=== PATIENT | female | born 1955 | race Caucasian/White ===

== ENCOUNTER → 2018-08-27 | Outpatient (CLI) | payer MEDICARE, OTHER | LOC: MC.RAD 11:20 | DX: Z12.31 Encounter for screening mammogram for malignant neoplasm of breast (principal) ==

== ENCOUNTER → 2019-09-10 | Outpatient (CLI) | payer MEDICARE, OTHER | LOC: MC.RAD 10:44 | DX: Z12.31 Encounter for screening mammogram for malignant neoplasm of breast (principal) ==

== ENCOUNTER → 2020-10-15 | Outpatient (CLI) | payer MEDICARE ==
[~2020-10-15] MED LIST: LIPITOR 10MG10 MG PO; MOBIC15 MG PO; ONE-A-DAY ESSE1 EACH PO; PEPCID 20MG TAB20 MG PO; TAZTIA240 PO; ZYRTEC5 MG PO
== END ==
LOC: MC.RAD
DX: Z12.31 Encounter for screening mammogram for malignant neoplasm of breast (principal)

== ENCOUNTER 2021-03-03 07:49 | Day surgery (SDC) | payer MEDICARE ==
[~2021-03-03] VITALS: Ht 160 cm; Wt 82.0 kg
[2021-03-03] MEDS ORDERED: MOBIC15 MG PO (08:14)
[2021-03-03] MEDS ORDERED: PEPCID 20MG TAB20 MG PO (08:15)
[2021-03-03] MEDS ORDERED: ONE-A-DAY ESSE1 EACH PO (08:15)
[2021-03-03] MEDS ORDERED: LIPITOR 10MG10 MG PO (08:15)
[2021-03-03] MEDS ORDERED: TAZTIA240 PO (08:15)
[2021-03-03] MEDS ORDERED: ZYRTEC5 MG PO (08:16)
[2021-03-03 08:17] VITALS: BP 132/82; PULSE 66; TEMP 97.7
[2021-03-03 09:30] VITALS: BP 99/69; PULSE 61
[2021-03-03 09:45] VITALS: BP 106/79; PULSE 61
[2021-03-03 10:00] VITALS: BP 121/78; PULSE 67; TEMP 98.3
--- NOTE | 2021-03-03 10:25 | NUR ---
0930 Pt returns from endo procedure via cart to [facility]. Pt ambulates from cart to recliner with RN assist. Monitors on and alarms set. Call light within reach. Pt requests coffee and muffin. Pt states no pain or nausea. present in room. Report received from TARSHA Figueroa. 0950 Pt taking food and drink well. No complications stated. 1015 Discharge instructions given to pt and . All questions answered to their satisfaction. Handed to them are a thank you card and discharge instructions. 1025 Pt transferred out of hospital via wheelchair and Adriana assist to private vehicle driven by .
== END 2021-03-03 10:25 | disposition home or self-care (01) ==
LOC: SDCO 07:49
DX: Z12.11 Encounter for screening for malignant neoplasm of colon (principal); D12.2 Benign neoplasm of ascending colon; K21.9 Gastro-esophageal reflux disease without esophagitis; E78.5 Hyperlipidemia, unspecified; Z79.899 Other long term (current) drug therapy; Z20.822 Contact with and (suspected) exposure to COVID-19
CPT/HCPCS: J2704; J7030

== ENCOUNTER → 2022-01-13 | Outpatient (CLI) | payer MEDICARE | LOC: MC.RAD 10:11 | DX: Z12.31 Encounter for screening mammogram for malignant neoplasm of breast (principal) ==

== ENCOUNTER → 2024-02-23 | Outpatient (CLI) | payer MEDICARE | LOC: MC.RAD 14:00 | DX: Z12.31 Encounter for screening mammogram for malignant neoplasm of breast (principal) ==